=== PATIENT | female | born 1970 | race Caucasian/White ===

== ENCOUNTER 2022-09-29 13:56 | Emergency (ER) | payer OTHER, SELFPAY ==
[2022-09-29 14:20] VITALS: BP 114/74; PULSE 76; RESP 17; TEMP 36.6; O2SAT 98; BMI 24.0
[2022-09-29] MEDS: Lidocaine HCl 1 % 20 ML VIAL INFILTRATI (14:49)
--- NOTE | 2022-09-29 14:50 | ED.GENADULT ---
HPI - General Adult General Chief complaint: Wound/Laceration Stated complaint: R hand lac Time Seen by Provider: 09/29/22 14:34 Source: patient Limitations: no limitations History of Present Illness HPI narrative: Patient presents to the ER complaining of a laceration to the dorsum of the right hand. Patient states she was pulling some objects out of a closet in about him and a straight razor vinyl cutter. Patient please tetanus shot is up-to-date patient has not had any current blood thinners bleeding was controlled with pressure symptoms are brqj-nt-yafgadlq no other complaints at this time. Related Data Allergies Allergy/AdvReac Type Severity Reaction Status Date / Time No Known Allergies Allergy Verified 09/29/22 14:20 Review of Systems Review of Systems: General: No fever, no chills GI: No nausea vomiting, no diarrhea Psychiatric: No depression, no suicidal ideation, no homicidal ideation Skin: Laceration noted to the dorsum of the right hand the level of the 4th digit Immunology: No immunocompromised Hematology: Positive bleeding, no bruising PMFSH Past Medical History Attestation statement: The following information was validated with the patient. Social History Social History Advance Directives: Yes Advance Directives Information Provided: Yes Advance Directives on File: No Physical Exam ED Vital Signs: Vital Signs - 24 hr 09/29/22 14:20 Temperature 98 F Pulse Rate 76 Respiratory Rate 17 Blood Pressure 114/74 Pulse Oximetry 98 Oxygen Delivery Method Room Air BMI result Body Mass Index 24.0 General appearance: Awake, alert, cooperative, in no acute distress Skin: Patient has a large laceration to the dorsum of the right hand extending proximally 4-4.5 cm ending in the 4th webspace Eyes: PERRL, EOMI, no icterus ENT: Oropharynx normal Pulmonary: no accessory muscle use Extremities: Right hand full flexion extension Neuro: Alert oriented x3, no focal deficit Psych: Normal affect Course Course Course Narrative: Right hand laceration Abrasion Contusion 52-year-old female status post laceration to right hand from a straight blade that was in her closet was an accidental cut. Bleeding was controlled with pressure. Procedure note laceration repair right hand Dorsum right hand 4.5 cm laceration Area cleaned with Betadine saline drape with sterile drapes 1% lidocaine used to anesthetize wound Wound irrigated with Betadine saline profile body Wound closed with 5 0 Ethilon times 14 Wound dressed Medications Administered Discontinued Medications Generic Name Dose Route Start Last Admin Trade Name Nora PRN Reason Stop Dose Admin Lidocaine HCl 20 ml 09/29/22 14:40 09/29/22 14:49 Lidocaine Hcl 1 % 20 Ml Vial INFILTRATI 09/29/22 14:41 20 ml ONCE ONE Administration Discharge Plan Discharge Clinical Impression: Laceration Patient Disposition: Home, Self-Care Instructions: Laceration (ED) Additional Instructions: Suture removal 10 days Keep wound clean and dry Avoid flexing the wrist
== END 2022-09-29 16:28 | disposition home or self-care (01) ==
PROVIDERS: Emergency Provider Emergency Medicine
DX: S61.411A Laceration without foreign body of right hand, initial encounter (principal); W27.8XXA Contact with other nonpowered hand tool, initial encounter; Y93.89 Activity, other specified; Y92.018 Other place in single-family (private) house as the place of occurrence of the external cause; Y99.9 Unspecified external cause status
CPT/HCPCS: 12042; 99282; 99284

== ENCOUNTER 2024-09-20 19:21 | Emergency (ER) | payer OTHER, SELFPAY ==
--- NOTE | ~2024-09-20 | XR_ITS ---
CLINICAL HISTORY: respiratory 1 view chest x-ray Comparison: None Findings: The lungs are clear. Normal size heart. Chronic appearing left posterior rib fractures. IMPRESSION: 1. No acute findings. This document has been electronically signed by: Krish Varma MD on 09/20/2024 21:31:26
[2024-09-20 20:04] VITALS: BP 100/61; PULSE 68; RESP 19; TEMP 36.6; O2SAT 98; BMI 24.2
[2024-09-20 20:17] LABS: MANUAL DIFF FLAG NO
--- NOTE | 2024-09-20 20:20 | ED_ITS ---
HPI - General Adult General Chief complaint: General Medical Stated complaint: migraine Time Seen by Provider: 09/20/24 20:34 Source: patient Mode of arrival: ambulatory Limitations: no limitations History of Present Illness ED Provider: HPI narrative: Patient's history of recurrent headaches with history of migraine comes here with similar headache on the left side of the head started earlier today with nausea vomiting light sensitivity patient has taken Imitrex in the past which never responded no fever no chills vomited 2 times Related Data Previous Rx's ?Medication ?Instructions ?Recorded bzebevjqcb-taikryrgphkdq-xyhydzyy 1 tab PO Q6H PRN haeadace #20 tabs 09/20/24 50 mg-325 mg-40 mg tablet Allergies Allergy/AdvReac Type Severity Reaction Status Date / Time No Known Allergies Allergy Verified 09/20/24 20:05 Review of Systems 2 Review of Systems: Yes all other systems are reviewed and are negative COUNT INCLUDES THE [facility] Social History Social History Smoked in Last 30 Days: No Use of substances other than those prescribed or required for medical reasons: No Advance Directives: No Advance Directives Information Provided: No Do you have a plan to hurt others: No Plan Patient : No Physical Exam ED Vital Signs: Vital Signs - 24 hr 09/20/24 20:04 09/20/24 20:33 09/20/24 22:51 Temperature 97.8 F 98.0 F 97.8 F Pulse Rate 68 61 60 Respiratory Rate 19 19 17 Blood Pressure 100/61 112/60 90/55 L Pulse Oximetry 98 96 97 Oxygen Delivery Method Room Air Room Air Room Air BMI result Body Mass Index 24.2 Appearance: Alert. Oriented X3. In mild distress Eyes: PERRLA, No Nystagmus light sensitive++ ENT: Pharynx normal. Oral Mucosa moist Neck: Normal inspection. Neck supple. CVS: Normal heart rate and rhythm. Pulses normal. Respiratory: No respiratory distress. Equal air entry bilateral, no wheezing/rales/rhonchi Abdomen: Soft and nontender. Bowel sounds are present, no mass palpable, no CVA tenderness Skin: Skin warm and dry. Normal skin color. Normal skin turgor. Extremities: No lower extremity edema. No calf tenderness Neuro: Oriented X 3. No motor deficit. No sensory deficit.No cerebellar signs , cranial nerves II-XII intact Course Course Course Narrative: This is an RME: Additional HPI, ROS, PE not included below will be deferred to primary provider. RME assessment and note performed by: Peri Amaya PA-C This is a 54-year-old female who presents emergency department complaints of congestion, headache, nausea and vomiting. She has been taking qhaf-udt-lnvkyld medication for headache which has provided her with some relief. Patient well- appearing, appears to be under no acute distress. Vital signs within normal limits. Plan: Labs, viral swabs, further ER evaluation needed. Medications Administered Discontinued Medications Generic Name Dose Route Start Last Admin Trade Name Freq PRN Reason Stop Dose Admin Acetaminophen/Butalbital/Caffeine 1 tab 09/20/24 22:57 09/20/24 23:19 Butalb/Acetamin/Caff 50/325/40 Tablet PO 09/20/24 22:58 1 tab ONCE ONE Administration Diphenhydramine HCl 50 mg 09/20/24 20:47 09/20/24 21:09 Diphenhydramine Hcl 50 Mg/Ml Vial IVPUSH 09/20/24 20:48 50 mg ONCE ONE Administration Sodium Chloride 1,000 mls @ 999 mls/hr 09/20/24 20:47 09/20/24 22:51 Ns IV 09/20/24 21:47 Infused .Q1H1M ONE Infusion Ketorolac Tromethamine 30 mg 09/20/24 20:48 09/20/24 21:09 Ketorolac Tromethamine 30 Mg/Ml Vial IVPUSH 09/20/24 20:49 30 mg ONCE ONE Administration Metoclopramide HCl 10 mg 09/20/24 20:47 09/20/24 21:09 Metoclopramide Hcl 10 Mg/2 Ml Vial IVPUSH 09/20/24 20:48 10 mg ONCE ONE Administration Medical Decision Making Medical Decision Making MDM Narrative: Patient with migraine headache responded to IV Benadryl and Reglan and Toradol discharge patient home on Fioricet Lab Data 09/20/24 20:12 09/20/24 20:13 Labs: Lab Results 09/20/24 09/20/24 Range/Units 20:12 20:13 WBC 5.0 (4.8-10.8) X10*3/uL RBC 4.27 (4.20-5.50) X10*6/uL Hgb 12.7 (12.0-16.0) g/dl Hct 36.5 L (37.0-47.0) % MCV 85.5 (80.0-98.0) fL MCH 29.7 (27.0-33.0) pg MCHC 34.8 (31.0-35.0) g/dl RDW 13.6 (11.0-16.0) % Plt Count 253 (160-400) X10*3/uL MPV 9.1 L (9.4-12.3) fL Immature Gran % (Auto) 0.2 (0.0-0.4) % Neut % (Auto) 68.6 (45-73) % Lymph % (Auto) 14.3 L (20-40) % Cataño % (Auto) 15.9 H (2-11) % Eos % (Auto) 0.4 (0-4) % Baso % (Auto) 0.6 (0-2) % Lymph # (Auto) 0.7 L (1.2-4.9) X10*3/uL Cataño # (Auto) 0.8 (0.1-1.2) X10*3/uL Eos # (Auto) 0.0 (0.0-0.4) X10*3/uL Baso # (Auto) 0.0 (0.0-0.2) X10*3/uL Abs Immat Gran (auto) 0.01 (0.00-0.03) X10*3/uL Absolute Neuts (auto) 3.4 (2.0-8.3) x10*3/uL Absolute Nucleated RBC 0.000 (0.0-0.012) X10*3/uL Nucleated RBC % (auto) 0.0 (0.0-0.2) /100WBC Sodium 134 L (135-145) mmol/L Potassium 3.9 (3.3-5.1) mmol/L Chloride 102 (96-108) mmol/L Carbon Dioxide 24 (22-29) mmol/L Anion Gap 12 (12-20) BUN 9 (9-16) mg/dL Creatinine 0.71 (0.5-1.4) mg/dL Estim Creat Clear Calc 82.8 Estimated GFR > 60 Random Glucose 102 (60-115) mg/dL Calcium 8.6 (8.4-10.2) mg/dL Total Bilirubin 0.8 (0.0-1.0) mg/dL AST 258 H (5-31) U/L ALT 33 H (0-31) U/L Alkaline Phosphatase 228 H (39-117) U/L Total Protein 6.5 (6.5-8.0) g/dL Albumin 3.8 (3.5-5.0) g/dL Influenza Type A (PCR) NEGATIVE (Negative) Influenza Type B (PCR) NEGATIVE (Negative) RSV RNA Qual (PCR) NEGATIVE (Negative) SARS-CoV-2 RNA (RT-PCR) POSITIVE A (Negative) Discharge Plan Discharge Clinical Impression: Migraine Instructions: Migraine Headache (ED) Additional Instructions: Rest at home Take medication for headache as prescribed Follow up with your PCP Prescriptions: New lmabvmbztw-sgydheidmovls-fsgj 50-325-40 mg tablet 1 tab PO Q6H PRN (Reason: haeadace) Qty: 20 0RF Print Language: Bengali
[2024-09-20 20:21] LABS: Basophils Percent Auto 0.6 % (0-2); Eosinophils Percent Auto 0.4 % (0-4); Hematocrit 36.5 % (37.0-47.0); Hemoglobin 12.7 g/dl (12.0-16.0); Imm Gran Abs Auto 0.01 X10*3/uL (0.00-0.03); Imm Gran Pct Auto 0.2 % (0.0-0.4); Lymphocytes Absolute Auto 0.7 X10*3/uL (1.2-4.9); Lymphocytes Percent Auto 14.3 % (20-40); Mean Corpuscular HGB Conc 34.8 g/dl (31.0-35.0); Mean Corpuscular Hemoglobin 29.7 pg (27.0-33.0); Mean Corpuscular Volume 85.5 fL (80.0-98.0); Mean Platelet Volume 9.1 fL (9.4-12.3); Monocytes Absolute Auto 0.8 X10*3/uL (0.1-1.2); Monocytes Percent Auto 15.9 % (2-11); Neutrophils Absolute Auto 3.4 x10*3/uL (2.0-8.3); Neutrophils Percent Auto 68.6 % (45-73); Platelet Count 253 X10*3/uL (160-400); Red Blood Count 4.27 X10*6/uL (4.20-5.50); Red Cell Distribution Width 13.6 % (11.0-16.0)
[2024-09-20 20:33] VITALS: BP 112/60; PULSE 61; RESP 19; TEMP 36.7; O2SAT 96
[2024-09-20 20:34] LABS: Alanine Aminotransferase 33 U/L (0-31); Albumin Level 3.8 g/dL (3.5-5.0); Alkaline Phosphatase 228 U/L (39-117); Anion Gap 12 (12-20); Aspartate Amino Transferase 258 U/L (5-31); Bilirubin Total 0.8 mg/dL (0.0-1.0); Blood Urea Nitrogen 9 mg/dL (9-16); Calcium 8.6 mg/dL (8.4-10.2); Carbon Dioxide 24 mmol/L (22-29); Chloride 102 mmol/L (96-108); Creatinine Clr Calc Pharmacy 82.8; Estimated Glomerular Filt Rate > 60; Glucose Random 102 mg/dL (60-115); Potassium 3.9 mmol/L (3.3-5.1); Sodium 134 mmol/L (135-145); Total Protein 6.5 g/dL (6.5-8.0)
[2024-09-20 20:58] LABS: Influenza A PCR NEGATIVE (Negative); Influenza B PCR NEGATIVE (Negative); Resp Syncy Virus RNA Qual PCR NEGATIVE (Negative); SARS COV2 PCR INHOUSE POSITIVE (Negative)
[2024-09-20] MEDS: Metoclopramide HCl 10 MG/2 ML VIAL IVPUSH (21:09)
[2024-09-20] MEDS: diphenhydrAMINE HCL 50 MG/ML VIAL IVPUSH (21:09)
[2024-09-20] MEDS: Ketorolac Tromethamine 30 MG/ML VIAL IVPUSH (21:09)
[2024-09-20] MEDS: 0.9 % Sodium Chloride 1,000 ML 999 ML IV (21:09)
[2024-09-20 22:51] VITALS: BP 90/55; PULSE 60; RESP 17; TEMP 36.6; O2SAT 97
[2024-09-20] MEDS: Butalb/Acetamin/Caff 50/325/40 TABLET 1 TAB PO (23:19)
[2024-09-21 00:38] VITALS: BP 90/55; PULSE 60; RESP 17; TEMP 36.6; O2SAT 97
== END 2024-09-21 00:40 | disposition home or self-care (01) ==
PROVIDERS: Emergency Provider Internal Medicine; PCP Registered Nurse
DX: G43.909 Migraine, unspecified, not intractable, without status migrainosus (principal); R11.2 Nausea with vomiting, unspecified; Z03.818 Encounter for observation for suspected exposure to other biological agents ruled out
CPT/HCPCS: 0241U; 71045; 80053; 85025; 96361; 96374; 96375; 99284; J1200; J1885; J2765

== ENCOUNTER → 2024-09-20 20:12 | Outpatient (BNV) | payer OTHER, SELFPAY | PROVIDERS: Emergency Provider Internal Medicine; PCP Registered Nurse; Visit Provider Radiology Diagnostic Radiology | DX: R11.2 Nausea with vomiting, unspecified (principal); R50.9 Fever, unspecified | CPT/HCPCS: 71045 ==